=== PATIENT | female | born 1975 | race Caucasian/White ===

== ENCOUNTER 2018-10-21 06:55 | Day surgery (SDC) | payer BC ==
[2018-10-21] MEDS ORDERED: MIDAZOLAM 1 MG/ML 2 ML INJ ×3 (09:42)
[2018-10-21] MEDS ORDERED: FENTAnyl 50 MCG/ML VIAL (09:43)
== END 2018-10-21 11:01 | disposition home or self-care (01) ==
LOC: GIL 06:55
DX: K64.8 Other hemorrhoids (principal); K29.50 Unspecified chronic gastritis without bleeding; K21.9 Gastro-esophageal reflux disease without esophagitis
CPT/HCPCS: 43239; 84703; 88104; 88304

== ENCOUNTER 2018-10-23 10:29 | Emergency (ER) | payer BC | END 2018-10-23 11:59 | disposition home or self-care (01) | LOC: FTE 11:59 | DX: R51 Headache (principal) | CPT/HCPCS: 99283; Z7502 ==